=== PATIENT | female | born 2005 | race Caucasian/White ===

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

== ENCOUNTER 2024-07-03 18:50 | Emergency (ER) | payer MEDICAID, SELFPAY ==
[2024-07-03 18:55] VITALS: BP 139/70; PULSE 94; RESP 18; TEMP 37; O2SAT 97; BMI 25.1
--- NOTE | 2024-07-03 18:55 | ED_ITS ---
HPI - URI/Sore Throat General Chief Complaint: Dyspnea Stated Complaint: Asthma/sob frequently Time Seen by Provider: 07/03/24 19:03 Source: patient Mode of arrival: ambulatory Limitations: no limitations History of Present Illness ED Provider: Raya Tracy APRN HPI Narrative: 19 yo female with history of asthma here with complaints of cough, wheezing x several days. Ran out of her inhalers and singular. Asthma is usually triggered by allergens in the air. No recent illnesses. No sick contact or recent travel. No shortness of breath, chest pain, fevers, chills, vomiting, diarrhea, leg swelling or leg pain. Related Data Previous Rx's ?Medication ?Instructions ?Recorded albuterol sulfate 90 mcg/actuation 2 inh inhalation Q4H PRN shortness 07/03/24 breath activated powder inhaler of breath or wheezing #1 ea loratadine 10 mg tablet (Claritin) 10 mg PO DAILY #30 tabs 07/03/24 prednisone 20 mg tablet 60 mg (3 x 20 mg) PO DAILY #15 tabs 07/03/24 Allergies Allergy/AdvReac Type Severity Reaction Status Date / Time No Known Allergies Allergy Unverified 07/03/24 18:58 [No Known Allergies*] Review of Systems Review of Systems: Yes all other systems are reviewed and are negative Constitutional: Constitutional: Reports no additional constitutional complaints, Denies body ache(s), Denies chills, Denies fever(s), Denies headache(s) and Denies weakness Eyes: Eyes: Reports no additional eye complaints and Denies change in vision ENT: Reports system reviewed and no additional complaints, except as documented, Denies dizziness, Denies headache(s), Denies nasal congestion, Denies nasal discharge and Denies neck pain Cardiovascular: Cardiovascular: Reports no additional cardiovascular complaints, Denies chest pain, Denies leg edema and Denies dyspnea Respiratory: Respiratory: Reports no additional respiratory complaints, Reports cough and Denies dyspnea Gastrointestinal: Gastrointestinal: Reports no additional gastrointestinal complaints, Denies abdominal pain, Denies diarrhea, Denies nausea and Denies vomiting Genitourinary: Genitourinary: Reports no additional female genitourinary complaints and Denies urinary incontinence Musculoskeletal: Musculoskeletal: Reports no additional musculoskeletal complaints, Denies back pain, Denies arthralgias, Denies joint swelling, Denies neck pain, Denies numbness and Denies tingling Integumentary/Breasts: Skin/Breast: Reports system reviewed and no additional complaints, except as docu and Denies rash Neurologic: Reports system reviewed and no additional complaints, except as documented, Denies Abnormal speech present, Denies dizziness, Denies headache(s), Denies numbness, Denies tingling and Denies weakness PMFSH Past Medical History Attestation statement: The following information was validated with the patient. Source: old records reviewed and nursing notes reviewed Physical Exam Vital Signs: Vital Signs: Last Vital Signs Temp 98.6 F 07/03/24 18:55 Pulse 94 07/03/24 18:55 Resp 18 07/03/24 18:55 BP 139/70 07/03/24 18:55 Pulse Ox 97 07/03/24 18:55 O2 Del Method Room Air 07/03/24 18:55 BMI result Body Mass Index 25.1 Const: General: cooperative, healthy appearing, comfortable and no acute distress Orientation/consciousness: patient oriented x3 Limitations: no limitations HEENT: Head: Yes normal to inspection Ears: hearing grossly normal bilaterally General nose exam: Normal external nose present Face and sinus: Yes normal facial exam Mouth: Normal oral and palatal mucosa present Throat: Yes posterior oropharynx normal Eyes: General: appearance normal, both eyes and all related structures Pupils: Equal, round and reactive pupils present Neck: Neck: Yes normal visual inspection Chest: Chest palpation & inspection: normal inspection of the chest Resp: Effort & Inspection: normal respiratory effort Auscultation: clear to auscultation bilaterally Cardio: Rate: regular rate Rhythm: regular rhythm Peripheral pulses: Peripheral pulses 2+ throughout GI: Inspection: Yes normal to inspection Palpation (GI): Soft to palpation and nontender Auscultation: normal bowel sounds Back/Spine/Pelvis: Thoracic/Lumbar Spine: thoracic and lumbar spine normal to inspection Skin: General skin exam: no rashes or lesions noted Neuro: General: patient oriented x3, no focal motor deficits and normal sensation to monofilament Cranial nerves: Yes Equal, round and reactive pupils present Cognition (Neuro): normal cognition Speech: No Abnormal speech present Gait exam (Neuro): Normal gait present Motor exam (neuro): 5/5 motor strength present throughout Extrem: General: Yes normal to inspection Course Course Course Narrative: Chey Tracy MEDICAL DIRECTOR 07/03 6793 This is a rapid medical exam. Deferred additional HPI, ROS, PE to primary provider. Medical Decision Making Medical Decision Making MDM Narrative: 19 yo female with history of asthma here with complaints of cough, wheezing x several days. Ran out of her inhalers and singular. Asthma is usually triggered by allergens in the air. No recent illnesses. No sick contact or recent travel. No shortness of breath, chest pain, fevers, chills, vomiting, diarrhea, leg swelling or leg pain. LS CTA VSS Will give albuterol MDI. Send home with prednisone, claritin, albuterol MDI. Recommend f/u with PCP outpatient Differential Diagnosis Differential Diagnoses: The differential diagnosis associated with the presen tation includes asthma exacerbation Admission/Observation Consideration of admission/observation: Escalation of care including admission/observation considered no hypoxia or tachypnea requiring supplemental oxygen and or admission Prescription Management I considered prescription management with: Antibiotic Chronic Conditions Patient?s care impacted by: Other (asthma) Discharge Plan Discharge Clinical Impression: Asthma Patient Disposition: Home, Self-Care Instructions: Asthma (ED) Additional Instructions: Use albuterol 2 puffs every 4 hours as needed for cough/wheezing Take claritin daily Start prednisone today F/u with your PCP for refills for your daily inhaler and singulair Prescriptions: New albuterol sulfate 90 mcg/actuation aerosol powdr breath activated 2 inh inhalation Q4H PRN (Reason: shortness of breath or wheezing) Qty: 1 0RF loratadine [Claritin] 10 mg tablet 10 mg PO DAILY Qty: 30 0RF prednisone 20 mg tablet 60 mg PO DAILY Qty: 15 0RF Referrals: Irene Moss STAFF AIR TACTICAL OFFICER [Primary Care Provider] - 1 week Print Language: Argentine
[2024-07-03] MEDS: Albuterol Sulfate 90 MCG 8 GM INHALER 2 PUFF INHALE (19:06)
--- OUTSIDE RECORDS SUMMARY | 2024-07-03 19:15 | XMS_ITS | Encounter Summary ---
Author Organization [employer] Address [address] [place] [address] [address] [place] [address] Care Team Providers Care Employee Relations Consultant Name Role Phone Irene Moss Primary Care Provider [phone] Alayna Thomas MD Primary Care Provider [phone] Reason for Visit * Reason Onset Date Comments Letter for School/Work 09/18/2022 Encounter Details Date Type Department Care Team ([facility] st Contact Info) Description 09/18/2022 Telephone [facility] [address] [place] [address] Irene Moss PNP [address] [place], [place] [phone] Letter for School/Work Social History Tobacco Use Types Packs/Day Years Used Date Smoking Tobacco: Never Passive Smoke Exposure: Never Smokeless Tobacco: Never Comments Unknown Sex and Gender Information Value Date Recorded Sex Assigned at Female 12/17/2021 10:25 AM EDT Legal Sex Female 10:25 AM EDT Gender Identity Female 12/17/2021 10:25 AM EDT Sexual Orientation Straight 12/17/2021 10 :25 AM EDT documented as of this encounter Miscellaneous Notes * Telephone Encounter - Michi Lea RN - 09/19/2022 9:40 AM EDT Letter generated. Pt informed. 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 * Telephone Encounter - [place] Simmons CNM - 09/19/2022 8:03 AM EDT Absolutely fine - please generate letter. * Telephone Encounter - Michi Lea RN - 09/18/2022 3:43 PM EDT Pt seen by [place]. Will forward to provider to review request. Please advise. Thank you. * Telephone Encounter - Hima Spear - 09/18/2022 3:35 PM EDT Tc from pt requesting a work letter excusing her from work yesterday due to her appt 09/17/2022. Please contact pt at [phone] documented in this encounter Plan of Treatment Not on file documented as of this encounter Visit Diagnoses Not on filedocumented in this encounter Care Teams Employee Relations Consultant Relationship Specialty Start Date End Date Irene Moss PNP [address] [place] [address] PCP - General Pediatrics 01/18/19 11/25/22 Alayna Thomas MD [address] [place] [address] PCP - General Internal Medicine 11/26/22 documented as of this encounter
--- OUTSIDE RECORDS SUMMARY | 2024-07-03 19:15 | XMS_ITS | Clinical Summary ---
Author Organization [employer] Address [address] [facility] [address] [place] [address] Care Team Providers Care Athletic Instructor Name Role Phone Alayna Thomas MD Primary Care Provider [phone] Allergies Active Allergy Reactions Criticality Noted Date Comments Dust Mite Extract Itching Low 12/25/2022 Medications Spacer/Aero-Holdi ng Chambers (AeroChamber MV) inhalerIndication s:Acute cough 1 each by Other route 2 times daily. 1 each 3 Active fluconazole (Diflucan) 150 MG tablet One tablet by mouth once 1 tablet 3 Active ibuprofen 600 MG tablet Take 1 tablet (600 mg) by mouth every 8 (eight) hours if needed for moderate pain. 60 tablet 3 3 Active montelukast (Singulair) 10 MG tabletIndications :Mild intermittent asthma, unspecified whether complicated 1 tablet by oral route every evening Strength: 10 mg 90 tablet 2 4 Active melatonin 3 MG tablet Take 1 tablet (3 mg) by mouth if needed at bedtime for sleep. 30 tablet 11 4 Active albuterol (Ventolin HFA) 108 (90 Base) MCG/ACT inhalerIndication s:Acute cough Inhale 2 puffs every 4 (four) hours if needed for wheezing or shortness of breath. 18 g 3 4 Active fluticasone furoate (Arnuity Ellipta) 100 MCG/ACT inhalerIndication s:Mild intermittent asthma, unspecified whether complicated Inhale 1 puff Once per day. Rinse mouth with water after use to reduce aftertaste and incidence of candidiasis. Do not swallow. 1 each 11 4 11/27/19 25 Active triamcinolone (Kenalog) 0.025 % creamIndications: Rash Apply topically 2 times daily. Mix entire tube with 16oz cera ve jar as instructed. Apply from neck down once daily 80 g 1 5 Active hydrocortisone 1 % ointmentIndicatio ns:Rash Apply topically 2 times daily. For 2 weeks 28 g 5 Active cetirizine (ZyrTEC) 10 MG tabletIndications :Rash Take 1 tablet (10 mg) by mouth Once per day. 30 tablet 1 5 05/20/19 26 Active Active Problems Problem Noted Date Diagnosed Date Asthma 11/27/2023 Seasonal allergic rhinitis 11/27/2023 Adjustment insomnia 12/25/2022 COVID-19 02/22/2022 Assessment & Plan (02/22/2022 5:15 PM EST): The reason she is feeling os badly is because she has covid. We tested today and she was (+). She will cont to use her rescue MDI as needed and will picker box operator her Flovent and begin to use that too and I will see her in 1 months for follow up asthma Well adolescent visit 01/24/2022 Assessment & Plan (01/24/2022 12:21 PM EST): Marilin is doing well. 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 She has a BF, but no high risk behaviors at all. She denies depression, did not fill out BH screen. I will see her in one month for asthma follow up Tuberculosis screening 01/24/2022 Mild intermittent asthma 11/04/2016 Assessment & Plan (01/24/2022 12:23 PM EST): Her asthma is currently out of control . She has wheezing and SOB on exertion. She also wakes up with coughing from this. I am adding Flovent and Singulair, which she has been on before I will see her in one month for follow up Encounters Date Type Department Care Team Description 05/19/2024 3:15 PM EDT Office Visit [facility] [address] [place] [address] [place], Kayla, AIR DRIER Rash 05/19/2024 Travel 05/10/2024 Telephone [facility] [address] [place], [place] [phone] Alayna Thomas MD Nurse Triage from Last 3 Months Immunizations Immunization Administration Dates Next Due DTaP 08/20/2007,05/10/2005,2003 DTaP / Hep B / IPV 06/15/2004,2003 HPV 9-Valent 01/21/2017,07/25/2016 Hep A, ped/adol, 2 dose 02/06/2017,07/25/2016 Hep B, Adolescent or Pediatric 08/20/2007,2004,2003 Hep B, Unspecified 06/15/2004,2003 HiB, unspecified 05/10/2005, 5,2003,09/07 Hib (PRP-T) 2003 IPV 08/20/2007, 5,2003,09/07 Influenza Whole 03/07/2009,12/25/2007,03/01/2005 Influenza injectable quadriv alent IIV4 with preservative 03/07/2009,12/25/2007,03/13/2007,03/01 Influenza injectable quadriv alent preservative free 12/25/2022,01/24/2022,01/19/2019,01/21 Influenza, IIV3, injectable 01/24/2022, 8 Influenza, seasonal, injecta ble, preservative free 11/27/2023 MMR 08/20/2007,06/15/2004 Meningococcal MCV4P ACYW-135 07/10/2020,07/26/19 17 Novel [id number], all formulations 03/07/2009 Pfizer Covid-19 Vaccine 12+ 11/27/2023,,06/06/2021 Pfizer Covid-19 Vaccine 12+ luzma-sucrose (Connolly Cap) 07/12/2021,06/06/2021 Pneumococcal Conjugate PCV 13 05/10/2005 ,06/15/2004,2003,09/07 Pneumococcal Conjugate PCV 7 05/10/2005, 06/15/2004,2003,09/07 Tdap 07/25/2016 Varicella 08/20/2007,06/15/2004 Family History Medical History Relation Name Comments Ovarian cancer Mother Diabetes Paternal Grandmother Relation Name Status Comments Mother Alive Paternal Grandmother Social History Tobacco Use Types Packs/Day Years Used Date Smoking Tobacco: Never Passive Smoke Exposure: Never Smokeless Tobacco: Never Tobacco Cessation:Counseling Given: No Alcohol Use Standard Drinks/Week Comments Never 0 (1 standard drink = 0.6 oz pur e alcohol) Depression Answer Date Recorded Patient Health Questionnaire-9 Score 4 12/25/2022 Patient Health Questionnaire-9 Score 4 12/25/2022 Last PHQ-9: Questionnaire Data Not on file 1 02/24/2022 Housing Stability Answer Date Recorded What is your housing situation today? I have [place] [employer] 12/17/[address] you li ve. Do you have problems with any of the following? None of the above 12/17/2022 Food Insecurity Answer Date Recorded Within the past 12 months, y ou worried that your food would run out before you got money to buy more: Never True 12/17/2022 Within the past 12 months,th e food you bought just didn't last and you didn't have enough money to get more: Never True Transportation Answer Date Recorded In the past 12 months, has l ack of transportation kept you from medical appts, meetings, work or from getting things needed for daily living? No 12/17/2022 Utilities Answer Date Recorded In the past 12 months, has t he electric, gas, oil or water company threatened to shut off services in your home? No 12/17/2022 Depression Answer Date Recorded Patient Health Questionnaire-2 Score 0 12/25/2022 Comments No Sex and Gender Information Value Date Recorded Sex Assigned at Female 12/17/2021 10:25 AM EDT Legal Sex Female 10:25 AM EDT Gender Identity Female 12/17/2021 10:25 AM EDT Sexual Orientation Straight 12/17/2021 10 :25 AM EDT Last Filed Vital Signs Vital Sign Reading Time Taken Comments Blood Pressure 107/60 05/19/2024 3:21 PM EDT Pulse 74 05/19/2024 3:21 PM EDT Temperature 37.2 ??C (98.9 ??F) 05/19/2024 3:21 PM ED T Respiratory Rate 18 05/19/2024 3:21 PM EDT Oxygen Saturation 99% 05/19/2024 3:21 PM EDT Inhaled Oxygen Concentration - - Weight 71.7 kg (158 lb) 05/19/2024 3:21 PM EDT Height 165.1 cm (5' 5 ) 05/19/2024 3:21 PM EDT Body Mass Index 26.29 05/19/2024 3:21 PM EDT Plan of Treatment Health Maintenance Due Date Last Done Comments HIV Screening 2003 Pneumococcal Vaccine: Pediatrics (0 to 5 Years) and At-Risk Patients (6 to 49) Years) (1 of 1 - PPSV23) 06/09/2009 05/10/2005, 05/10/2005, 06/15/2004, Additional history exists Alcohol/Substance Use Screening 2015 Family Planning (PISQ) 06/09/2018 Meningococcal B Vaccine (1 of 2 - Standard) 2019 Hepatitis C Screening 06/09/2021 Chlamydia and Gonorrhea Screening 09/18/2023 09/17/2022, 09/18/2021 SDOH Screening 12/18/2023 12/17/2022 Depression Screening 12/26/2023 12/25/2022, 12/26/19 23 Pap Smear 06/09/2024 Tobacco Screening 05/21/2025 05/21/2024 DTaP/Tdap/Td Vaccines (7 - Td or Tdap) 07/25/2026 07/25/2016, 08/20/2007, 05/10/2005, Additional history exists Zoster Vaccines (1 of 2) 06/09/2053 RSV Patients and Patients Aged 60 years or older (1 - 1-dose 75+ series) 06/09/2078 HIB Vaccines Completed 05/10/2005, 05/19, 2003, Additional history exists Hepatitis B Vaccines Completed 08/20/2007, 06/15/2004, 06/15/2004, Additional history exists IPV Vaccines Completed 08/20/2007, 05/19, 06/15/2004, Additional history exists HPV Vaccines Completed 01/21/2017, 07/25/2016 Hepatitis A Vaccines Completed 02/06/2017, 07/26/19 17 Meningococcal Vaccine Completed 07/10/2020, 017 COVID-19 Vaccine Completed 11/27/2023, , 07/12/2021, Additional history exists Influenza Vaccine Completed 11/27/2023, , 01/24/2022, Additional history exists RSV under 20 months Aged Out No longe r eligible based on patient's age to complete this topic Rotavirus Vaccines Aged Out No longer eligible based on patient's age to complete this topic Procedures Procedure Name Priority Date/Time Associated Diagnosis Comments CHLAMYDIA/N. GONORRHOEAE RNA, TMA, UROGENITAL Routine 09/17/2022 2:18 PM EDT Vaginal discharge from Last 3 Months or Most Recently Relevant to Health Maintenance Results * Chlamydia/N. Gonorrhoeae RNA, TMA, Urogenitial (09/17/2022 2:18 PM EDT) CT PCR NOT DETECTED Not Detect. [facility] Comment:A not detected test result does not exclude the possibilityof infection because test results can be affected byimproper specimen collection, concurrent antibiotic therapy,or the number of organisms in the specimen which may bebelow the sensitivity of the test. As with many diagnostictests, results from the Xpert CT/NG assay should beinterpreted in conjunction with other laboratory andclinical data available to the clinician.Xpert CT/NG performance has not been evaluated in patientsless than 14 years of age. The assay should not be used forthe evaluationof suspected sexual abuse or for other medico-legalindications. Additional testing is recommended in anycircumstance when false positive or false negative resultscould lead to adverse medical, social or psychologicalconsequences. NG PCR NOT DETECTED Not Detect. [facility] Comment:A not detected test result does not exclude the possibilityof infection because test results can be affected byimproper specimen collection, concurrent antibiotic therapy,or the number of organisms in the specimen which may bebelow the sensitivity of the test. As with many diagnostictests, results from the Xpert CT/NG assay should beinterpreted in conjunction with other laboratory andclinical data available to the clinician.Xpert CT/NG performance has not been evaluated in patientsless than 14 years of age. The assay should not be used forthe evaluationof suspected sexual abuse or for other medico-legalindications. Additional testing is recommended in anycircumstance when false positive or false negative resultscould lead to adverse medical, social or psychologicalconsequences. Swab (Vaginal Swab) 09/17/2022 2:18 PM EDT 09/17/2022 5:36 PM EDT Narrative [facility] - 09/18/2022 4:18 AM EDT Vaginal [place] Simmons [facility] MICROBIOLOGY - GENERA L ORDERABLES Final Result [facility] [address] [place] [address] [phone] from Last 3 Months or Most Recently Relevant to Health Maintenance [place] [address] [place] [address] , [address] [place] [address] Care Teams Athletic Instructor Relationship Specialty Start Date End Date Alayna Thomas MD [address] [place] [phone] PCP - General Internal Medicine 11/26/22
[2024-07-03 19:17] VITALS: BP 139/70; PULSE 94; RESP 18; TEMP 37; O2SAT 97
== END 2024-07-03 19:17 | disposition home or self-care (01) ==
PROVIDERS: Emergency Provider Emergency Medicine; PCP Nurse Practitioner Pediatrics
DX: J45.909 Unspecified asthma, uncomplicated (principal); R05.9 Cough, unspecified
CPT/HCPCS: 99282; 99284